=== PATIENT | female | born 1955 | race Caucasian/White ===

== ENCOUNTER → 2018-02-16 18:09 | Outpatient (CLI) | payer OTHER, SELFPAY ==
--- NOTE | 2018-02-16 18:13 | DI.MRI.S_ITS ---
PROCEDURE: MR KNEE LT WO CON INDICATIONS: KNEE PAIN - LEFT TECHNIQUE: Noncontrast sagittal PD fast spin echo and T2 fast spin echo with fat saturation, sagittal 3-D FLASH with fat saturation; coronal T1 spin echo and PD fast spin echo with fat saturation, and axial PD fast spin echo with fat saturation through the knee. COMPARISON: [facility] [place], CR, KNEE SERIES LT, 12/17/2016, 9:04. FINDINGS: Image quality: Excellent. Menisci: The medial and lateral menisci demonstrate normal morphology and internal signal. The meniscal root ligaments appear intact. Cruciate ligaments: The anterior and posterior cruciate ligaments appear intact. Medial structures: The medial collateral ligament appears intact. The posterior oblique ligament, semimembranosus tendon insertions, oblique popliteal ligament, and meniscocapsular junction appear intact. Visualized portions of the pes anserinus tendons appear normal. No abnormal bursal fluid. Lateral structures: The lateral collateral ligament, long and short heads of the biceps femoris tendon appear intact. The popliteus tendon appears normal; the popliteofibular ligament appears intact. The posterosuperior and anteroinferior popliteomeniscal fascicles appear intact. The arcuate and fabellofibular ligaments appear intact, on either side of the lateral inferior geniculate artery. Iliotibial band appears normal. Anterior structures: The quadriceps and patellar tendons appear intact. Patellar alignment is normal. No femoral trochlear dysplasia or ventral trochlear prominence. No edema in the infrapatellar fat pad. Bones and cartilage: No bone marrow contusions or fractures but there is a marrow space lesion within the distal femoral intercondylar trabecular space measuring up to 1.3 cm craniocaudad, 1.0 cm transverse and 1.4 cm AP. This has a chondroid matrix morphology.. The cartilage of the medial and lateral femorotibial compartments, as well as the patellofemoral compartment, appears reduced in thickness to an equivalent mild to moderate degree at the medial and lateral compartments but there is moderately severe degenerative change with marrow space edema and near [id number]-yx-[id number] articulation at the lateral facet of the patellofemoral joint Joint space: There is moderately large excess of knee joint fluid with internal small amounts of debris, best seen in the suprapatellar bursal space. There is a very small posterior medial Del Rosario's cyst. Normal appearing synovial plicae are incidentally noted. IMPRESSION: 1. Moderately large joint effusion, with small amounts of internal debris in the joint space itself. Synovitis of some form appears present, but no acute trauma is found. Small posterior medial Del Rosario's cyst. 2. Near sgip-oo-vfih articulation is present at the lateral facet of the patellofemoral joint, with reactive marrow edema both involving the patella and the lateral femoral condyle. Relatively mild symmetric medial and lateral compartment degenerative joint space narrowing. 3. 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 Followup plain film assessment of this area is recommended to establish baseline imaging for followup. Enchondroma versus low grade chondrosarcoma would be the 2 likely etiologies, more likely benign than malignant, but followup is recommended. 4. No acute trauma found. No prior traumatic injury to the knee is seen. No meniscal tear are suspected. No ligamentous injury found. Dictated by: Ricardo See M.D. on 02/17/2018 at 15:03 Approved by: Ricardo See M.D. on 02/17/2018 at 15:10
== END ==
PROVIDERS: Visit Provider Nurse Practitioner Family
DX: M25.562 Pain in left knee (principal); M25.462 Effusion, left knee; M71.22 Synovial cyst of popliteal space [Baker], left knee
CPT/HCPCS: 73721

== ENCOUNTER → 2018-02-18 10:40 | Outpatient (CLI) | payer OTHER, SELFPAY ==
--- NOTE | 2018-02-18 | DI.RAD.S_ITS ---
PROCEDURE: XR KNEE LT 3V INDICATIONS: ABNORMAL FINDINGS ON DI, LEFT KNEE TECHNIQUE: 3 views of the knee were acquired. COMPARISON: [facility], CR, KNEE SERIES LT, 12/17/2016, 9:04. [facility], MR, MR KNEE LT WO CON, 02/16/2018, 18:16. FINDINGS: Bones: No fractures or dislocations, but there is a mild to moderate degree of degenerative osteoarthritis at the medial compartment of the left knee, and also moderate degenerative fossa 3 change at the medial and lateral facets of the patellofemoral joint.. No suspicious bony lesions would be suspected without benefit of the MRI from 02/16/18. A chondroid matrix lesion in the medullary space corresponding to the MR finding can be very faintly visualized and does not appear to be definitely new with reference to the old plain film evaluation of the knee from 12/17/16. Soft tissues: There is a small suprapatellar joint effusion. No suspicious soft tissue calcifications. IMPRESSION: The chondroid matrix lesion involving the medullary space in the distal femoral intercondylar trabecula is not definitely new, and is only very faintly visualized via the plain film imaging. The joint effusion present during MR scanning 2 days ago is underestimated by the plain film imaging. Overall the likelihood of a malignant chondrosarcoma as cause of the chondroid matrix lesion is considered very low. Followup by plain film in 6 and 12 months from now is recommended. Dictated by: Ricardo See M.D. on 02/18/2018 at 11:19 Approved by: Ricardo See M.D. on 02/18/2018 at 11:23
== END ==
PROVIDERS: Visit Provider Nurse Practitioner Family
DX: M89.8X6 Other specified disorders of bone, lower leg (principal); M17.12 Unilateral primary osteoarthritis, left knee; M25.462 Effusion, left knee; R93.8 Abnormal findings on diagnostic imaging of other specified body structures
CPT/HCPCS: 73562

== ENCOUNTER → 2019-06-05 09:31 | Outpatient (CLI) | payer OTHER, SELFPAY | PROVIDERS: Visit Provider Physician Assistant | DX: R30.0 Dysuria (principal) | CPT/HCPCS: 87077; 87086; 87186 ==

== ENCOUNTER → 2021-11-13 09:34 | Outpatient (CLI) | payer OTHER, SELFPAY ==
[2021-11-13 10:03] LABS: COVID19 -Nasal RAPID Negative (Negative)
== END ==
PROVIDERS: Visit Provider Physician Assistant
DX: Z20.822 Contact with and (suspected) exposure to COVID-19 (principal)
CPT/HCPCS: 87635

== ENCOUNTER → 2022-01-02 20:35 | Outpatient (ROUT) | payer OTHER, SELFPAY ==
[2022-01-11 09:54] LABS: Miscellaneous to Univ of WA SEE SEPARATE RESULTS
[2022-01-11 09:54] LABS: Miscellaneous to Univ of WA SEE SEPARATE RESULTS
[2022-01-11 09:55] LABS: Miscellaneous to Univ of WA SEE SEPARATE RESULTS
== END ==
PROVIDERS: Visit Provider Dermatology
DX: D48.5 Neoplasm of uncertain behavior of skin (principal)
CPT/HCPCS: 87070; 87075; 87102; 87116; 87176; 87205; 87206

== ENCOUNTER → 2022-06-13 08:15 | Outpatient (CLI) | payer OTHER, SELFPAY ==
[2022-06-13 10:49] LABS: Influenza A - CEPHEID Flu A NEGATIVE (NEGATIVE); Influenza B - CEPHEID Flu B NEGATIVE (NEGATIVE); Respiratory Syncytial Virus Negative (Negative)
[2022-06-13 10:51] LABS: COVID-19 CEPHEID 4-PLEX PCR Negative (Negative)
== END ==
PROVIDERS: Visit Provider Nurse Practitioner Family
DX: R05.9 Cough, unspecified (principal); R50.9 Fever, unspecified; Z20.822 Contact with and (suspected) exposure to COVID-19
CPT/HCPCS: 0241U

== ENCOUNTER → 2022-12-30 13:11 | Outpatient (CLI) | payer OTHER, SELFPAY | PROVIDERS: Visit Provider Registered Nurse | DX: R30.0 Dysuria (principal) | CPT/HCPCS: 87086 ==

== ENCOUNTER 2023-12-25 20:03 | Emergency (ER) | payer OTHER, SELFPAY ==
[2023-12-25] VITALS (13 sets, daily range): BP systolic 136–161; BP diastolic 68–80; PULSE 68–90; RESP 12–15; TEMP 36.4; O2SAT 95–100; BMI 28.7
--- NOTE | 2023-12-25 20:08 | DI.RAD.S_ITS ---
PROCEDURE: XR TIBIA FIBULA LT 2V INDICATIONS: fall TECHNIQUE: 2 views of the tibia and fibula were acquired. COMPARISON: None. FINDINGS: Bones: Acute comminuted fracture involving distal fibular shaft is seen with anterior and lateral displacement at fracture site. Displaced fracture involving medial malleolus is also seen. No proximal to mid tibial or fibular fracture is seen. No suspicious bony lesions. Soft tissues: No suspicious soft tissue calcifications or masses. IMPRESSION: Acute comminuted and displaced distal fibular shaft fracture as well as displaced medial malleolus fracture. No proximal to mid lower leg fractures. Dictated by: Jimbo Ruiz M.D. on 12/25/2023 at 20:57 Approved by: Jimbo Ruiz M.D. on 12/25/2023 at 20:58
--- NOTE | 2023-12-25 20:52 | ED.LOWEXIN ---
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 She denies any pain to her head, face, neck, clavicles, shoulders, chest, upper back, lower back, abdomen, pelvis, hips, thighs, knees, arms, elbows, forearms, wrists, hands, fingers. She denies pain to her left foot and toes. She denies pain injury to her right lower extremity. She has had prior laparoscopic surgery to her left knee, no surigcal interventions to her left ankle or foot. Related Data Home Medications Medication Instructions Recorded Confirmed multivitamin (Multiple Vitamins 1 tab PO QDAY ##0 05/07/17 06/03/23 tablet) Previous Rx's Medication Instructions Recorded fluconazole 150 mg tablet 150 mg PO Q3D 2 doses #2 tabs 06/05/19 mupirocin 2 % topical ointment 1 applic topical BID #30 grams 01/07/21 amoxicillin 875 mg-potassium 1 tab PO Q12H #20 tabs 06/03/23 clavulanate 125 mg tablet cephalexin 500 mg capsule 500 mg PO QID 7 days #28 caps 12/25/23 oxycodone-acetaminophen 5 mg-325 1 tab PO Q6H PRN pain #20 tabs 12/25/23 mg tablet (Percocet) Allergies Allergy/AdvReac Type Severity Reaction Status Date / Time Sulfa (Sulfonamide Allergy Intermediate Rash Verified 12/25/23 20:07 Antibiotics) Tetracycline Allergy Unknown Uncoded 12/25/23 20:07 Review of Systems Review of Systems Narrative: per HPI Patient History Medical History No active medical problems Social History Smoking Status: Never smoker Smoking Status: Never smoker Exam Narrative Exam Narrative: GENERAL: Well-developed patient, in mild distress. HEAD: Atraumatic. Normocephalic. EYES: Pupils equal round and reactive. Extraocular motions intact. No scleral icterus. No injection or drainage. ENT: Nose without bleeding, purulent drainage. Throat without erythema, tonsillar hypertrophy or exudate. Airway patent. NECK: Trachea midline. Non tender CARDIOVASCULAR: Regular rate and rhythm without murmurs, gallops, or rubs. RESPIRATORY: Clear to auscultation. Breath sounds equal bilaterally. No wheezes, rales, or rhonchi. GASTROINTESTINAL: Abdomen soft, non-tender, nondistended. EXTREMITIES: Left lower extremity in EMS air splint device, removed, distal anterior swelling with some lateral deviation 5-10 degree ankle, slight lateral rotation, good DP pulse, good cap refill toes. No tenderness to left knee thigh hip. No tenderness to right lower extremity, or either upper extremities. BACK: Nontender without deformity or crepitance. No flank tenderness. NEURO: AOx3. SKIN: No rash or erythema of visible areas Initial Vital Signs Initial Vital Signs: Vital Signs Temperature 97.6 F 12/25/23 20:05 Respiratory Rate 12 12/25/23 20:05 Blood Pressure 136/78 12/25/23 20:05 Procedures Orthopedic Fracture Reduction Fracture #1: Time of procedure: 21:45 Time Out Performed: Yes Side: left Fracture Reduction Location: tibia and fibula Analgesia: procedural sedation Technique: direct manipulation Post Reduction X-rays Demonstrate: anatomical reduction Post-reduction neuro exam: intact Post-reduction vascular exam: intact Splint Applied: Yes Patient Tolerated Procedure: Well Procedural Sedation Time of procedure: 21:45 Consent signed: Yes Time out performed: Yes Indication: fracture/dislocation reduction Presedation Evaluation: Unremarkable airway, no anticipated difficult airway, good neck mobility ASA Class: I Mallampati Airway Classification: Class I Time of Last PO Intake: 20:00 Preparation: night monitor applied, pulse oximeter, capnometry used, suction/airway equipment at bedside and IV secured IV Propofol dose (mg): 160 ED Sedation Level: Moderate (Concious) Patient Tolerated Procedure: Well Complications: none Additional Comments: Returned after completion of the procedure to her preprocedure baseline mental status and neuromotor state Course Orders Ordered: ED Orders 12/25/23 22:07 XR ankle LT 2V Stat XR tibia fibula LT 2V Stat 12/25/23 22:41 CT LE LT wo con Stat Discontinued Medications Cephalexin HCl (Cephalexin 250 Mg Capsule) 500 mg PO NOW ONE Stop: 12/25/23 22:34 Last Admin: 12/25/23 23:10 Dose: 500 mg Documented By: AMALIA Hydromorphone HCl (Hydromorphone 0.5 Mg Inj) 0.5 mg IV NOW ONE Stop: 12/25/23 20:56 Last Admin: 12/25/23 21:14 Dose: 0.5 mg Documented By: KRISTOFER Oxycodone/Acetaminophen (Oxycodone/Acetaminophen 5/325 Tablet) 1 tab PO NOW ONE Stop: 12/25/23 22:35 Last Admin: 12/25/23 23:09 Dose: 1 tab Documented By: AMALIA Oxycodone/Acetaminophen (Oxycodone/Apap 5/325 Prepack) 1 bottle MISC DIRECTED ONE Stop: 12/25/23 22:35 Last Admin: 12/25/23 23:10 Dose: 1 bottle Documented By: AMALIA Propofol (Propofol 200 Mg/20 Ml Vial) 75 mg 1 mg/kg (75 mg) IV NOW ONE Stop: 12/25/23 21:28 Last Admin: 12/25/23 21:51 Dose: 75 mg Documented By: AMALIA Vital Signs Vital signs: Vital Signs - 8 hr 12/25/23 22:10 12/25/23 22:15 12/25/23 22:20 Pulse Rate Respiratory Rate Blood Pressure Pulse Oximetry Oxygen Flow Rate 2 2 2 12/25/23 22:27 12/25/23 22:27 12/25/23 22:30 Pulse Rate 68 Respiratory Rate 14 Blood Pressure 145/68 H 141/68 H Pulse Oximetry 97 Oxygen Flow Rate 12/25/23 22:30 12/25/23 22:32 12/25/23 22:40 Pulse Rate 73 90 72 Respiratory Rate 15 15 13 Blood Pressure Pulse Oximetry 97 97 Oxygen Flow Rate 12/25/23 22:40 12/25/23 23:08 12/25/23 23:09 Pulse Rate 71 Respiratory Rate Blood Pressure 142/71 H 161/80 H Pulse Oximetry 98 Oxygen Flow Rate 12/25/23 23:09 12/25/23 23:10 12/25/23 23:10 Pulse Rate 69 72 Respiratory Rate Blood Pressure 153/77 H Pulse Oximetry 98 98 Oxygen Flow Rate MDM - Extremity Injury (Lower) Lab Data Labs: Point of Care Testing Test Results Not applicable Imaging Data Extremity x-ray #1: Radiologist's Impression: [address] [address] XRay Report Signed Patient: Dalila Lui MR#: [id number] : 1955 Acct:[id number] Age/Sex: 68 / F Date of Service: 12/25/23 Loc: ED Accession Number: [id number] Procedure: XR ankle LT min 3V Ordering Provider: Vitor Petit MD PROCEDURE: XR ANKLE LT MIN 3V INDICATIONS: ankle tib fib injury TECHNIQUE: 3 views of the ankle were acquired. COMPARISON: None. FINDINGS: Bones: Acute comminuted fracture involving distal fibular shaft is seen with anterior and lateral displacement at fracture site and slight lateral angulation. Acute displaced fractures involving medial malleolus and posterior malleolus is seen with inferiorly displaced medial malleolus fracture fragment and posterior and laterally displaced posterior malleolus fracture fragment. Complete disruption of ankle mortise is seen with lateral subluxation at tibiotalar joint. Soft tissues: No tibiotalar joint effusion. Achilles tendon appears normal. IMPRESSION: Acute comminuted and displaced trimalleolar fracture with complete disruption of ankle mortise and lateral subluxation at tibiotalar joint as above. Dictated by: Jimbo Ruiz M.D. on 12/25/2023 at 21:29 Approved by: Jimbo Ruiz M.D. on 12/25/2023 at 21:31 Extremity x-ray #2: Radiologist's Impression: [address] [address] XRay Report Signed Patient: Dalila Lui MR#: [id number] : 1955 Acct:[id number] Age/Sex: 68 / F Date of Service: 12/25/23 Loc: ED Accession Number: [id number] Procedure: XR tibia fibula LT 2V Ordering Provider: Vitor Petit MD PROCEDURE: XR TIBIA FIBULA LT 2V INDICATIONS: fall TECHNIQUE: 2 views of the tibia and fibula were acquired. COMPARISON: None. FINDINGS: Bones: Acute comminuted fracture involving distal fibular shaft is seen with anterior and lateral displacement at fracture site. Displaced fracture involving medial malleolus is also seen. No proximal to mid tibial or fibular fracture is seen. No suspicious bony lesions. Soft tissues: No suspicious soft tissue calcifications or masses. IMPRESSION: Acute comminuted and displaced distal fibular shaft fracture as well as displaced medial malleolus fracture. No proximal to mid lower leg fractures. Dictated by: Jimbo Ruiz M.D. on 12/25/2023 at 20:57 Approved by: Jimbo Ruiz M.D. on 12/25/2023 at 20:58 Extremity x-ray #3: Radiologist's Impression: [address] [address] XRay Report Signed Patient: Dalila Lui MR#: [id number] : 1955 Acct:[id number] Age/Sex: 68 / F Date of Service: 12/25/23 Loc: ED Accession Number: [id number] Procedure: XR tibia fibula LT 2V Ordering Provider: Vitor Petit MD PROCEDURE: XR TIBIA FIBULA LT 2V INDICATIONS: post reduction TECHNIQUE: 2 views of the tibia and fibula were acquired. COMPARISON: [facility] , XR TIBIA FIBULA LT 2V, 12/25/2023, 20:23. FINDINGS: Bones: There is interval reduction of earlier noted displaced trimalleolar ankle fracture with non near anatomic ankle alignment. No proximal to mid tibial or fibular fracture. Soft tissues: No suspicious soft tissue calcifications or masses. IMPRESSION: No proximal to mid tibial or fibular fracture. Interval reduction of comminuted and displaced trimalleolar ankle fracture with near anatomic ankle alignment. Dictated by: Jimbo Ruiz M.D. on 12/25/2023 at 23:00 Approved by: Jimbo Ruiz M.D. on 12/25/2023 at 23:01 Extremity x-ray #4: Radiologist's Impression: [address] [address] XRay Report Signed Patient: Dalila Lui MR#: [id number] : 1955 Acct:[id number] Age/Sex: 68 / F Date of Service: 12/25/23 Loc: ED Accession Number: [id number] Procedure: XR ankle LT 2V Ordering Provider: Vitor Petit MD PROCEDURE: XR ANKLE LT 2V INDICATIONS: psot reduction TECHNIQUE: 2 views of the ankle were acquired. COMPARISON: [facility], CR, XR ANKLE LT MIN 3V, 12/25/2023, 20:51. FINDINGS: Bones: There is interval reduction of earlier displaced ankle fracture with near anatomic ankle alignment on the current study. Comminuted and displaced trimalleolar fracture is again seen and unchanged. No new fracture is noted. Soft tissues: Diffuse soft tissue swelling around ankle joint is seen. IMPRESSION: Interval reduction of earlier noted comminuted and displaced trimalleolar ankle fracture with near anatomic alignment. No new fracture or dislocation. Dictated by: Jimbo Ruiz M.D. on 12/25/2023 at 22:59 Approved by: Jimbo Ruiz M.D. on 12/25/2023 at 23:00 CT Left ankle: Radiologist's Impression: See CT report Radiology, trimalleolar fracture with good reduction, see report MDM Narrative Medical decision making narrative: Fall with left ankle area and distal foreleg swelling, x-ray shows comminuted fracture distal fibula, posterior malleolar fracture with displacement, also small chip fracture medial malleolus. IV conscious sedation with propofol with reduction and splinting, good result post reduction x-rays. We will contact Orthopedic surgery for follow up, and [address] further imaging useful for surgical planning. [id number], case discussed with Orthopedic surgery Dr. Nair, who reviewed x-ray images, adequate reduction, would like further imaging CT noncontrast, for surgical staging. Office information to be relayed patient on discharge, to be contacted tomorrow for close follow up in surgical fixation planning. Crutches, in splint, nonweightbearing. Analgesics. Abrasion noted, not felt to be open fracture, however we will give few days of cephalexin to help wound prophylaxis hopefully prevent cellulitis changes. CT left ankle noncontrast study pending Critical Care Time Critical Care Time Critical Care Time: Yes Total Critical Care Time: 35 Attestation: The high probability of a clinically significant, sudden or life threatening deterioration of the [musculoskeletal, cardiopulmonary] system(s) required my full and direct attention, intervention and personal management. The aggregate critical care time was 35 minutes. This time is in addition to time spent performing reported procedures but includes the following: [x] Data Review and interpretation [x] Patient assessment and monitoring of vital signs [x] Documentation [x] Medication orders and management Discharge Plan Departure Patient Disposition: Home Clinical Impression: Closed trimalleolar fracture of ankle, Abrasion of ankle, left Instructions: DI for Fracture Activity Restrictions/Additional Instructions: Trimalleolar comminuted displaced fracture of the left distal fibula, also involving different parts of the distal tibia bone, conscious sedation was well tolerated, to help place the bones in a better short term alignment, in splint. Case discussed with Orthopedic surgery Dr. Nair, she was able to review the x-rays, requests CT scan for better surgical approach plan, we will need surgical fixation stabilization. Call her office tomorrow, to arrange close follow up and surgical planning date. Crutches and nonweightbearing until orthopedic surgery follow up appointment. Take med medications as needed. Prescriptions: New cephalexin 500 mg capsule 500 mg PO QID 7 Days Qty: 28 0RF oxycodone-acetaminophen [Percocet] 5-325 mg tablet 1 tab PO Q6H PRN (Reason: pain) Qty: 20 0RF No Action fluconazole 150 mg tablet 150 mg PO Q3D 0 Days Qty: 2 0RF Rx Instructions: may repeat second dose 72 hrs after first dose if symptoms persist mupirocin 2 % ointment 1 applic topical BID Qty: 30 0RF amoxicillin-pot clavulanate 875-125 mg tablet 1 tab PO Q12H Qty: 20 0RF multivitamin [Multiple Vitamins] 1 EACH tablet 1 tab PO QDAY Qty: 0 Referrals: Miscellaneous,MD Steven [Primary Care Provider] - Marilu Nair MD [Physician] - Stand Alone Forms: Patient Portal/API
[2023-12-25] MEDS: HYDROMORPHONE 0.5 MG INJ IV (21:14)
[2023-12-25] MEDS: propofoL 200 MG/20 ML VIAL 75 MG IV (21:51)
--- NOTE | 2023-12-25 22:07 | DI.RAD.S_ITS ---
PROCEDURE: XR TIBIA FIBULA LT 2V INDICATIONS: post reduction TECHNIQUE: 2 views of the tibia and fibula were acquired. COMPARISON: [facility], CR, XR TIBIA FIBULA LT 2V, 12/25/2023, 20:23. FINDINGS: Bones: There is interval reduction of earlier noted displaced trimalleolar ankle fracture with non near anatomic ankle alignment. No proximal to mid tibial or fibular fracture. Soft tissues: No suspicious soft tissue calcifications or masses. IMPRESSION: No proximal to mid tibial or fibular fracture. Interval reduction of comminuted and displaced trimalleolar ankle fracture with near anatomic ankle alignment. Dictated by: Jimbo Ruiz M.D. on 12/25/2023 at 23:00 Approved by: Jimbo Ruiz M.D. on 12/25/2023 at 23:01
--- NOTE | 2023-12-25 22:07 | DI.RAD.S_ITS ---
PROCEDURE: XR ANKLE LT 2V INDICATIONS: psot reduction TECHNIQUE: 2 views of the ankle were acquired. COMPARISON: [facility], CR, XR ANKLE LT MIN 3V, 12/25/2023, 20:51. FINDINGS: Bones: There is interval reduction of earlier displaced ankle fracture with near anatomic ankle alignment on the current study. Comminuted and displaced trimalleolar fracture is again seen and unchanged. No new fracture is noted. Soft tissues: Diffuse soft tissue swelling around ankle joint is seen. IMPRESSION: Interval reduction of earlier noted comminuted and displaced trimalleolar ankle fracture with near anatomic alignment. No new fracture or dislocation. Dictated by: Jimbo Ruiz M.D. on 12/25/2023 at 22:59 Approved by: Jimbo Ruiz M.D. on 12/25/2023 at 23:00
--- NOTE | 2023-12-25 22:41 | DI.CT.S_ITS ---
PROCEDURE: CT LE LT W CON INDICATIONS: Left ankle, for surgical staging per ortho TECHNIQUE: Noncontrast 3-mm axial sections acquired from the distal tibial shaft to the talar dome, with coronal and sagittal reformats.. COMPARISON: [facility], CR, XR TIBIA FIBULA LT 2V, 12/25/2023, 22:11. [facility], CR, XR ANKLE LT 2V, 12/25/2023, 22:11. FINDINGS: Image quality: Excellent. Bones: [id number] tricompartmental osteoarthritis in left knee is seen. Slight lateral subluxation of patella is also seen. No left knee fracture or dislocation. There is acute comminuted fracture involving distal fibular shaft with slight anterior displacement at fracture site and additional posterior, medial and laterally displaced fractured fragments. Acute oblique fracture through base of medial malleolus is seen with slight inferior and anterior displacement of fractured fragment. There is also slightly comminuted fracture involving posterior lateral corner of distal tibial plafond with posterior and lateral displacement at fracture site. No other fracture or dislocation is seen. No suspicious intraosseous lesion. Osteoarthritic changes are noted throughout included portion of left foot. Soft tissues: There is soft tissue swelling surrounding left ankle. Small to moderate tibiotalar joint effusion is seen, no calcified intra-articular loose bodies. No full-thickness ankle tendon rupture. No soft tissue mass is seen. There is small left knee joint effusion. No calcified intra-articular loose bodies. IMPRESSION: 1. Acute comminuted and slightly displaced trimalleolar ankle fracture as described in detail above. 2. No dislocation. No other fracture. Left knee and left foot osteoarthritis. No suspicious bony lesions. 3. Ankle soft tissue swelling. Small joint effusion, no calcified intra-articular loose bodies. No full-thickness ankle tendon rupture. No soft tissue mass. Dictated by: Jimbo Ruiz M.D. on 12/25/2023 at 23:33 Approved by: Jimbo Ruiz M.D. on 12/25/2023 at 23:37
[2023-12-25] MEDS: OXYCODONE/ACETAMINOPHEN 5/325 TABLET 1 TAB PO (23:09)
[2023-12-25] MEDS: OXYCODONE/APAP 5/325 PREPACK 1 BOTTLE MISC (23:10)
[2023-12-25] MEDS: cephALEXin 250 MG CAPSULE 500 MG PO (23:10)
== END 2023-12-25 23:42 | disposition home or self-care (01) ==
PROVIDERS: Emergency Provider Emergency Medicine
DX: S82.852A Displaced trimalleolar fracture of left lower leg, initial encounter for closed fracture (principal); S90.512A Abrasion, left ankle, initial encounter; W18.39XA Other fall on same level, initial encounter
CPT/HCPCS: 27818; 73590; 73600; 73610; 73700; 96374; 99152; 99284; 99285; J1170; J2704

== ENCOUNTER 2023-12-29 11:05 | Day surgery (SDC) | payer OTHER, SELFPAY ==
[2023-12-26 13:11] VITALS: BMI 30.4
[2023-12-29] VITALS (8 sets, daily range): BP systolic 112–149; BP diastolic 71–94; PULSE 75–86; RESP 10–20; TEMP 36.7–36.8; O2SAT 97–99; BMI 30.4
--- NOTE | 2023-12-29 | DI.RAD.S_ITS ---
PROCEDURE: XR ANKLE LT 2V INDICATIONS: lt ankle surgery TECHNIQUE: 3 intraoperative fluoroscopic views of the ankle were acquired. COMPARISON: [facility], CR, XR ANKLE LT 2V, 12/25/2023, 22:11. FINDINGS: Intraoperative fluoroscopic images of left ankle shows internal fixation of distal fibular shaft and medial malleolus as well as distal tibial fibular syndesmosis. Ankle alignment is near anatomic. IMPRESSION: Fluoro guidance was provided intraoperatively for ORIF of left ankle. Dictated by: Jimbo Ruiz M.D. on 12/29/2023 at 16:05 Approved by: Jimbo Ruiz M.D. on 12/29/2023 at 16:06
[2023-12-29] MEDS: LACTATED RINGERS 1,000 ML 42 ML IV (12:53)
--- NOTE | 2023-12-29 13:16 | PM.PREOP ---
Pre-operative Note Interval Note History & Physical reviewed/Exam performed by Physician: Yes Changes to H&P: No
--- NOTE | 2023-12-29 13:33 | P.OP_ITS ---
Operative Date/Time/Diagnoses Date of procedure: 12/29/23 Time of procedure: 13:30 Pre-op diagnosis: Left trimalleolar ankle fracture syndesmosis disruption Post-op diagnosis: same Procedure & Clinicians Procedure: Open reduction internal fixation left trimalleolar ankle fracture without fixation of posterior lip 55745 Open reduction internal fixation ankle syndesmosis 88874 Same procedure as scheduled: Yes Indications: The patient is a 68-year-old female that sustained a left displaced trimalleolar ankle fracture. she was indicated for surgery help restore alignment reduce the risk of posttraumatic arthritis and prolonged dysfunction. The risks and benefits of the procedure have been discussed with the patient and given the opportunity to ask questions. The risks of surgery include but are not limited to infection, malunion, nonunion, persistence of pain, damage to nerves and blood vessels, posttraumatic arthritis, DVT, PE, cardiopulmonary complications and . The patient expressed a thorough understanding of the risks and benefits of surgery and has elected to proceed. Consent was signed. Surgeon: Kendal Moran Click Yes if Unassisted: Yes Anesthesia Type: General, Peripheral nerve block and Local (30 cc of 0.25% Marcaine with epinephrine) Operative Notes Findings: Displaced trimalleolar ankle fracture, left Lateral malleolus was fixed with a 8 hole 1/3 tubular locking plate from the Arthrex set with locking and nonlocking screws Medial malleolus was fixed with 2x4.0 cannulated long thread partially-threaded screws 40 mm Syndesmosis was disturbed was fixed with 2x3.5 cortical screws At this point the posterior malleolus fracture was evaluating was inappropriate alignment was treated closed Closure Type: primary Prosthetic devices, grafts, tissues, transplants, or devices: Fibula-- Arthrex 8 hole 1/3 tubular plate locking and nonlocking 3.5 screws Medial malleolus--Arthrex 4.0 long thread cannulated screws x2--40 mm Syndesmosis -2 xArthrex 3.5 cortical screws solid Syndesmosis and posterior malleolus alignment were stable after fixation Estimated Blood Loss (mL): 20 Blood products transfused: none Tourniquet time (min): 52 Procedure in detail: Operative indications: The patient has an unstable and displaced left trimalleolar ankle fracture and was indicated for surgical reduction and stabilization. The patient was counseled regarding the rationale for this and the risks of surgery. The risks include infection, bleeding, damage to nerves and blood vessels, or tendons, wound dehiscence, malunion, nonunion, persistence of pain, DVT, PE, inability to return to her desired level of function, hardware breakage or prominence, generalized dissatisfaction with the procedure, need for additional procedures, cardiopulmonary complications and . The patient expressed understanding of all the risks and elected to proceed. Consent was signed in the office. Patient understands that recovery is variable and may require up to a 1 year. The patient also understands that it is critical to strictly elevate the operative leg for the 1st 2 weeks after surgery to control swelling and pain. The patient was counseled that no way will be allowed on the surgical leg for approximately 6 weeks or until the patient is instructed that it is safe to initiate weight-bearing. The patient expressed full understanding of all these issues would like to proceed with surgery. The patient was additionally counseled on cessation of all nicotine products to promote bone and wound healing. DVT prophylaxis was discussed and will be completed with aspirin 325 mg enteric coated x6 weeks starting postoperative day 1. Procedure in detail: In the preoperative holding area, the appropriate limb this was the left ankle and sites were marked, consent was again reviewed with the patient and all questions answered. The patient was brought to the operating room, placed on the operating table and given anesthetic. Following successful levels of anesthesia, the patient was appropriately padded, position secured to the table. An SCD was placed on the contralateral leg. All bony prominences were well padded. A well-padded thigh tourniquet was placed. The surgical leg was then prepped and draped in the usual sterile fashion. A formal time-out procedure was completed confirming the patient, site and side of surgery and administration of appropriate preoperative antibiotics. All were in agreement. An Esmarch bandage was utilized to exsanguinate the limb and the tourniquet was raised on the thigh to 250 mmHg. Lateral incision was made over the fibula. Dissection was carried through the skin and subcutaneous tissue to the level of the fibula. The fracture was exposed and cleaned of debris. This was basically a segmental fracture with a more distal oblique fracture and comminuted fracture of the level of the syndesmosis. This was 1st pinned out to length with a K-wire from the distal fibula into the talus. The remainder fracture was pulled out to length with the reduction clamps and then pinned in place. Fracture was reduced, restoring length rotation and anatomic alignment. This was stabilized with 8 hole 1/3 tubular plate from the Arthrex set this was secured in standard fashion. This was checked on intraoperative fluoroscopy. Separate 2-0 Vicryl stitch was used to Lasso the separate anterior fragment attached the syndesmosis and this was secured to the plate. Appropriate implant positioning was confirmed on intraoperative fluoro. Medial malleolus fixation: Attention was then turned to the medial side of the joint. A standard medial approach to the medial malleolus as it. The periosteum was reflected at the fracture site and this was cleaned and reduced with a pointed reduction clamp. Two parallel K-wires were then placed and alignment checked on x-ray to confirm adequate position. The wires were then sequentially overdrilled and 2x 4.0mm cannulated screws were placed. The reduction was stable. Syndesmosis stabilization: Attention was then turned to the syndesmosis. The syndesmosis was stressed under fluoroscopy with external rotation and fibular manipulation using the bone hook. It was felt the syndesmosis opened. Therefore the syndesmosis was formally opened and reduced and then stabilized with 2 cortical 3.5 mm syndesmotic screws. Next attention was returned to the posterior malleolus fracture this remained minimally displaced alignment and was appropriate after syndesmotic fixation therefore was treated closed. Stability was confirmed under fluoro. The wounds were irrigated. We were quite satisfied with result clinically and radiographically. The tourniquet was released, and hemostasis achieved. The deep tissue was closed with 2 O Vicryl. Subcutaneous tissue was closed with 4 0 Monocryl in the skin with 3 O nylon. A sterile bulky Lui dressing and posterior and U splint were applied. All counts were correct. The patient was then awoken and transported to recovery [facility] in good condition. There no known immediate complications from this procedure. Complications: none Post-operative Condition: stable Disposition: PACU Plan for aftercare: Nonweightbearing or toe-touch down for balance on the left lower extremity x6 weeks. Aspirin 325 mg daily x6 weeks for DVT prophylaxis. Follow up in Orthopedic Clinic in 2-3 weeks for suture removal and conversion to a walking boot but the patient will remain nonweightbearing or touchdown for balance for 6 weeks
[2023-12-29] MEDS: CEFAZOLIN 2 GM/100 ML PREMIX 100 ML IV (13:50)
[2023-12-29] MEDS: BUPIVACAINE 0.25% (PF) 30 ML, EPINEPHrine 0.15 MG INJ (14:14)
[2023-12-29] MEDS: ACETAMINOPHEN IV 1,000 MG/100 ML VIAL 400 MG IV (14:15)
--- NOTE | 2023-12-29 14:19 | SUR.OPER ---
Supine on padded OR bed, head on pillow, arms secured on padded arm boards at <90 degrees abduction, legs uncrossed, safety belt across abdomen, left leg prepped into sterile field resting on folded blanket stack, right leg padded w/blanket & secured w/tape. Confirmed by Dr. Moran.
[2023-12-29] MEDS: OXYCODONE IR 5 MG TABLET PO (16:46)
== END 2023-12-29 16:47 | disposition home or self-care (01) ==
PROVIDERS: Referring Provider Orthopaedic Surgery Foot and Ankle Surgery; Visit Provider Orthopaedic Surgery Foot and Ankle Surgery
PROC: (CPT 27822; principal; 2023-12-29 13:15)
DX: S82.852A Displaced trimalleolar fracture of left lower leg, initial encounter for closed fracture (principal); W01.0XXA Fall on same level from slipping, tripping and stumbling without subsequent striking against object, initial encounter; G89.18 Other acute postprocedural pain
CPT/HCPCS: 27822; 27829; 64450; 73600; 76000; C1713; J0136; J0171; J0690; J1100; J1885; J2405; J2704; J3010

== ENCOUNTER → 2025-01-17 14:45 | Outpatient (CLI) | payer OTHER, SELFPAY | PROVIDERS: Visit Provider Chiropractor | DX: R30.0 Dysuria (principal); N89.8 Other specified noninflammatory disorders of vagina | CPT/HCPCS: 87077; 87086; 87210 ==